=== PATIENT | male | born 1980 | race Hispanic/Latino ===

== ENCOUNTER 2016-11-10 13:58 | Emergency (ER) | payer OTHER ==
[~2016-11-10] VITALS: Ht 188 cm; Wt 85.3 kg
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
[2016-11-10] MEDS ORDERED: LEVOTHYROXINE125 MCG PO (15:21)
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
[2016-11-10 15:59] VITALS: BP 120/69
[2016-11-10] MEDS ORDERED: CYCLOBENZAPRINE5 M2 PO (16:00)
== END 2016-11-10 16:22 ==
LOC: ERH 13:58
DX: S46.912A Strain of unspecified muscle, fascia and tendon at shoulder and upper arm level, left arm, initial encounter (principal); S39.012A Strain of muscle, fascia and tendon of lower back, initial encounter; V28.0XXA Motorcycle driver injured in noncollision transport accident in nontraffic accident, initial encounter
CPT/HCPCS: 72100; 73030-LT